=== PATIENT | male | born 1970 | race African-American/Black ===

== ENCOUNTER 2022-09-22 15:33 | Emergency (ER) | payer OTHER ==
[~2022-09-22] VITALS: Ht 170.2 cm; Wt 88.0 kg
[2022-09-22] MEDS ORDERED: cloNIDine HCL 0.1 MG TAB PO ONE (15:45)
[2022-09-22 17:23] VITALS: BP 127/75
== END 2022-09-22 17:25 ==
LOC: EEVIPCON 15:33 → ER 15:33
DX: I16.0 Hypertensive urgency (principal); I10 Essential (primary) hypertension